=== PATIENT | female | born 1925 | race Caucasian/White ===

== ENCOUNTER 2016-11-30 16:41 | Inpatient (IN) | payer MEDICARE, BC ==
[2016-11-30] MEDS ORDERED: Cefepime(*) 2 GM in NS 0.9% 50 ML* 50 ML IVPB ONE (17:20)
[2016-11-30] MEDS ORDERED: Vancomycin(*) 1,000 MG in NS 0.9% 250 ML* 250 ML IVPB ONE (17:20)
[2016-11-30] MEDS ORDERED: metroNIDAZOLE IV 500 MG/100ML* 500 MG/100 ML BAG IVPB ONE (17:21)
[2016-11-30] MEDS ORDERED: NS 0.9% 50 ML* 0 ML ONE (18:08)
[2016-11-30] MEDS: NS 0.9% 1000 ML* 2,000 ML IV ONE (18:32)
[2016-11-30 18:52] LABS: Hematocrit 36 % (35-47); Hemoglobin 11.5 g/dl (12.0-16.0); Mean Corpuscular HGB Conc 32 g/dl (31-36); Mean Corpuscular Hemoglobin 30 pg (27-31); Mean Corpuscular Volume 94 fL (80-97); Mean Platelet Volume 10 um3 (7.4-10.4); Red Blood Count 3.86 10^6/ul (4.0-5.4); Red Cell Distribution Width 16 % (10.5-15); White Blood Count 14.7 10^3/ul (3.5-10.8)
--- NOTE | 2016-11-30 18:56 | ED ---
Alfredo Barrett Auryana, scribed for Duglas Alford MD on 11/30/16 at 1725 . Lower Extremity - HPI Summary HPI Summary: 89 year old female presents with possible bone infection in the middle toe on the right foot starting today. Patient reports that it was sore for a few days but did not think it was an infection. Family states that she doesn't have a good appetite and has pedal edema. She denies fever, night sweats, back pain, groin swelling, diarrhea, vomiting, calf pain, and any red streaks up to the legs. She denies any ABX for her toe or any trauma to the right foot. PMHx is significant for DM (borderline; medication non-compliant), valve replacement, and A-FIB- Warfarin treatment. She was seen at Dr. Duran's office - placed the dressing today and is concerned about a bone infection and sent patient to the ER for imaging. - History of Current Complaint Chief Complaint: EDExtremityLower Stated Complaint: RT TOE INJURY Time Seen by Provider: 11/30/16 17:00 Hx Obtained From: Patient Hx Last Menstrual Period: N/A Mechanism Of Injury: Unknown Onset of Pain: Prior to Arrival - TODAY - SEE AT DR. LINO OFFICE Onset/Duration: Still Present Severity Initially: Mild Severity Currently: Moderate Timing: Constant Location: Is Discrete @ - RIGHT FOOT - 3RD TOE Associated Signs And Symptoms: Positive: Swelling, Redness, Other - PEDAL EDEMA WITH POOR APPETITE. Negative: Fever - Allergies/Home Medications Allergies/Adverse Reactions: Allergies Allergy/AdvReac Type Severity Reaction Status Date / Time Bacitracin Allergy Unknown Rash Verified 11/30/16 17:44 Home Medications: Home Medications Aspirin EC Low Dose* [Ecotrin EC Low Dose 81 MG*] 81 mg PO DAILY 11/30/16 [ History Confirmed 11/30/16] Atorvastatin* [Lipitor*] 20 mg PO DAILY 11/30/16 [History Confirmed 11/30/16] Furosemide TAB* [Lasix TAB*] 40 mg PO DAILY 11/30/16 [History Confirmed 11/30/16 ] Hydrochlorothiazide TAB* [Hydrodiuril TAB*] 12.5 mg PO DAILY 11/30/16 [History Confirmed 11/30/16] Levothyroxine TAB* [Synthroid TAB*] 50 mcg PO DAILY 11/30/16 [History Confirmed 11/30/16] Lisinopril TAB* [Prinivil TAB*] 20 mg PO DAILY 11/30/16 [History Confirmed 11/30] Metoprolol Succinate XL TAB* [Toprol XL TAB*] 50 mg PO BID 11/30/16 [History Confirmed 11/30/16] Potassium Chloride LIQUID* [Klor-Con LIQUID*] 20 meq PO DAILY 11/30/16 [History Confirmed 11/30/16] Pramipexole TAB* [Mirapex TAB*] 0.25 mg PO BEDTIME 11/30/16 [History Confirmed 11/30/16] Warfarin TAB(*) [Coumadin TAB(*)] 1 mg PO SUTU 11/30/16 [History Confirmed 11/30] Warfarin TAB(*) [Coumadin TAB(*)] 2 mg PO MOWETHFRSA 11/30/16 [History Confirmed 11/30/16] traMADol TAB* [Ultram*] 25 - 50 mg PO TID PRN 11/30/16 [History Confirmed ] PMH/Surg Hx/FS Hx/Imm Hx Endocrine/Hematology History: Reports: Hx Diabetes - DM controlled with diet Cardiovascular History: Reports: Hx Coronary Artery Disease, Hx Hypercholesterolemia, Hx Valvular Heart Disease - Aortic valve dis, Mitral valve dis, Other Cardiovascular Problems/Disorders - A-Fib Musculoskeletal History: Denies: Hx Osteoporosis - Surgical History Surgery Procedure, Year, and Place: non-healing surgical wound; HEART BYPASS; VALVE REPLACEMENT; HYSTERECTOMY; TONSILLECTOMY Infectious Disease History: Denies: Traveled Outside the [place] in Last 30 Days - Social History Occupation: Retired Lives: With Family - Alcohol Use: None Hx Substance Use: No Substance Use Type: Reports: None Hx Tobacco Use: Yes Smoking Status (MU): Never Smoked Tobacco Review of Systems Constitutional: Negative Negative: Fever, Chills Eyes: Negative ENT: Negative Cardiovascular: Negative Respiratory: Negative Positive: Other - decreased appetite. Negative: Vomiting, Diarrhea Genitourinary: Negative Positive: Edema Positive: Other - erythema and pain at the 3rd toe on the right foot Neurological: Negative Psychological: Normal All Other Systems Reviewed And Are Negative: Yes Physical Exam - Summary Physical Exam Summary: The patient is well-nourished in no acute distress and in no acute pain. The skin is warm and dry and skin color reflects adequate perfusion. Ulcer on lateral aspect of the 3rd toe (R foot)- fairly deep, [id number]. Erythema over dorsum of the foot right with foul odor. Marked ecchymosis with questionable necrotic tissue. HEENT: The head is normocephalic and atraumatic. The pupils are equal and reactive. The conjunctivae are clear and without drainage. Nares are patent and without drainage. Mouth reveals moist mucous membranes and the throat is without erythema and exudate. The external ears are intact. The ear canals are patent and without drainage. The tympanic membranes are intact. Neck is supple with full range of motion and non-tender. There are no carotid bruits. There is no neck vein distension. Respiratory: Chest is non-tender. Lungs are clear to auscultation and breath sounds are symmetrical and equal. Cardiovascular: Heart is irregular rate and rhythm but controlled. There is no murmur or rub auscultated. There is no peripheral edema and pulses are symmetrical and equal. Abdomen: The abdomen is soft and non-tender. There are normal bowel sounds heard in all four quadrants and there is no organomegaly palpated. Musculoskeletal: There is no back pain noted. Right foot and injury is tender to touch. There is good capillary refill. There is no peripheral edema or calf tenderness elicited. Good pulses and sensation. No lymphangitis. Neurological: Patient is alert and oriented to person, place and time. The patient has symmetrical motor strength in all four extremities. Cranial nerves are grossly intact. Deep tendon reflexes are symmetrical and equal in all four extremities. Psychiatric: The patient has an appropriate affect and does not exhibit any anxiety or depression. Triage Information Reviewed: Yes Vital Signs On Initial Exam: Initial Vitals Temp Pulse Resp BP Pulse Ox 97.0 F 87 20 126/51 100 11/30/16 16:47 11/30/16 16:47 11/30/16 16:47 11/30/16 16:47 11/30/16 16:47 Vital Signs Reviewed: Yes Diagnostics - Vital Signs Vital Signs Temp Pulse Resp BP Pulse Ox 11/30/16 16:47 97.0 F 87 20 126/51 100 - Laboratory Lab Statement: Any lab studies that have been ordered have been reviewed, and results considered in the medical decision making process. Re-Evaluation - Re-Evaluation First Eval Re-Evaluation Time: 18:43 - DISCUSSED PLAN OF ACTION Lower Extremity Course/Dx - Course Assessment/Plan: 89 year old female presents with possible bone infection in the middle toe on the right foot starting today. Patient reports that it was sore for a few days but did not think it was an infection. Family states that she doesn't have a good appetite and has pedal edema. She denies fever, night sweats, back pain, groin swelling, diarrhea, vomiting, calf pain, and any red streaks up to the legs. She denies any ABX for her toe or any trauma to the right foot. She was seen at Dr. Brewster's office - placed the dressing today and is concerned about a bone infection and sent patient to the ER for imaging. Will start on ABX now. Will order imaging and MRSA cultures. Cultures- clusters resembling Staph. Will Consult hospitalist for admission. no critical care time for this patient. Sign out from Dr. Alford to Dr. Valente at 19: 00 11/30/16 PENDING ADMISSION - Diagnoses Differential Diagnosis/HQI/PQRI: Positive: Cellulitis, Osteomyelitis, Other - abscess, gangrene Provider Diagnoses: Infection of right foot, Ulcer of toe of right foot - Physician Notifications Discussed Care of Patient With: Romero Barth Time Discussed With Above Provider: 18:51 - agrees to admit Discharge - Discharge Plan Condition: Stable Disposition: ADMITTED TO [facility] Referrals: Khushbu Willis MD [Primary Care Provider] - The documentation as recorded by the Alfredo pathak Auryana accurately reflects the service I personally performed and the decisions made by , Duglas Alford MD.
[2016-11-30 19:08] LABS: Albumin 3.9 g/dL (3.2-5.2); BUN/Creatinine Ratio 41.3 (8-20); C Reactive Protein 124.86 mg/L (< 5.00); EGFR African American 44.4 (>60); EGFR Non-African American 34.6 (>60); Globulin 3.7 g/dL (2-4); Potassium 3.6 mmol/L (3.5-5.0); Total Bilirubin 0.7 mg/dL (0.2-1.0); Total Protein 7.6 g/dL (6.4-8.9); Troponin I 0.01 ng/mL (<0.04)
[2016-11-30] MEDS ORDERED: Dextrose 50% Syringe 50 ML* 25 GM/50 ML SYRINGE IV PUSH PRN (19:37)
[2016-11-30 19:57] LABS: Erythrocyte Sed Rate 102 mm/Hr (0-40)
[2016-11-30] MEDS ORDERED: Warfarin TAB(*) 2 MG PO SCH (20:00)
[2016-11-30] MEDS ORDERED: Heparin VIAL(*) 5000 UNITS/ML VIAL (FIVE THOUSAND) SUBCUT SCH (22:00)
--- NOTE | 2016-11-30 22:04 | HP ---
HOSPITAL MEDICINE HISTORY AND PHYSICAL: DATE OF ADMISSION: 11/30/16 PRIMARY CARE PHYSICIAN: Dr. Hernandez. ATTENDING PHYSICIAN: Kala Nicholson MD * (dictation provided by Dorcas Jack NP ) CHIEF COMPLAINT: Right third toe infection. HISTORY OF PRESENT ILLNESS: Ms. Roland is an 89-year-old female with a past medical history of coronary artery bypass graft with aortic and mitral valve repair complicated by sternal wound infection in 2011 as well as diabetes who presents today to the hospital with concern for right third toe infection. Ms. Roland states that she has been in her normal state of health. She has absolutely no health complaints. She was started on glyburide for an elevated hemoglobin A1c by her primary care physician, Dr. Hernandez. The patient states that she felt like she had lower extremity swelling after starting glyburide and therefore stopped it on her own without consulting a physician. She states that 2 days ago, she noticed that the top of her foot was itching. Her daughter saw her today and noted that the patient had significant redness and a wound to the right third toe and encouraged her to come to the emergency room for evaluation. The patient denies any fevers, any chills. No nausea. No vomiting. She has been tolerating oral intake well. She denies chest pain, shortness of breath. She has had no diarrhea. In the emergency room, Ms. Roland was confirmed to have what appeared to be a right third toe ulceration with erythema to the anterior portion of the right foot and she is afebrile. Her vitals are stable. Her labs showed leukocytosis with a white blood cell count of 14.7. She does have chronic kidney disease, but this is at baseline. Lactic acid is 2.1, CRP 124.86. PAST MEDICAL HISTORY: 1. Coronary artery bypass graft in 2011. 2. Aortic valve repair in 2011. 3. Mitral valve repair in 2011. 4. History of sternal wound infection with Staph aureus. 5. Restless leg syndrome. 6. Hypertension. 7. Hyperlipidemia. 8. Paroxysmal atrial fibrillation. 9. Diabetes, [id number]. 10. History of hysterectomy. MEDICATIONS: 1. Lisinopril 20 mg p.o. daily. 2. Tramadol 25 to 50 mg p.o. t.i.d. p.r.n. 3. Aspirin 81 mg p.o. daily. 4. Atorvastatin 20 mg p.o. daily. 5. Furosemide 40 mg p.o. daily. 6. Hydrochlorothiazide 12.5 mg p.o. daily. 7. Levothyroxine 50 mcg p.o. daily. 8. Metoprolol succinate 50 mg p.o. b.i.d. 9. Potassium chloride 20 mEq p.o. daily. 10. Pramipexole 0.25 mg p.o. at bedtime. 11. Warfarin 1 mg alternating with 2 mg tabs as directed. ALLERGIES: BACITRACIN. FAMILY HISTORY: The patient reports her mother at 88 of old age and father at 66 of heart problems, but he was a smoker. SOCIAL HISTORY: No report of tobacco or drug use. The patient drinks very rarely. She lives with her , who would be the healthcare proxy. REVIEW OF SYSTEMS: A 14-point review of systems was completed with Ms. Roland and all those not mentioned above were negative. PHYSICAL EXAMINATION GENERAL: Ms. Roland is sitting in the bed, eating a turkey sandwich. She is in no acute distress. VITAL SIGNS: Temperature 98.2, pulse rate 80, respiratory rate 16, O2 saturation 99% on room air, blood pressure 135/70. LUNGS: Clear to auscultation bilaterally with no accessory muscle use and good aeration. HEART: S1, S2. No murmur, rub, or gallop and regular. ABDOMEN: Soft, nontender with bowel sounds positive x4. EXTREMITIES: No cyanosis or edema. SKIN: The patient has noted erythema to the top of her right foot extending about half way down along the right side. She has a small ulceration to the third digit on the anterior portion. There is no drainage, but the entire third toe was swollen. NEURO: She is alert and oriented x3. She moves all extremities equally. There is no facial asymmetry or focal weakness. Extraocular movements are intact. LABORATORY DATA/DIAGNOSTIC STUDIES: Sodium 136, potassium 3.6, chloride 93, serum bicarbonate 32, BUN 59, creatinine 1.43, glucose 130, lactic acid 2.1, CRP 124.86. WBC 14.7, hemoglobin 11.5, hematocrit 36, platelet count 250. INR 2.84. ASSESSMENT: Ms. Roland is an 89-year-old female with a past medical history of coronary artery bypass graft and aortic and mitral valve repair complicated with sternal wound infection in 2012 as well as atrial fibrillation, newly diagnosed type 2 diabetes, and hypertension who presents today to the hospital with concern for infection to the right third toe. Our plan is as follows for inpatient admission as I expect her length of stay to be greater than 2 days for the followin. Diabetic foot ulcer: I suspect this is a diabetic foot ulcer and the patient apparently has a neuropathy as she did not feel any pain with the significant swelling, erythema, and ulceration to the third toe. She is also newly diagnosed with diabetes though her hemoglobin A1c is not particularly high. She had started glyburide, but stopped it independently due to the concern that perhaps it was causing lower extremity edema. Plan to treat with clindamycin and Levaquin for now with dosing based on her chronic kidney disease. Plan to encourage her to elevate the lower extremity at all times. Anticipate the patient may need to follow up with the wound care clinic. At this time, I do not see an indication for orthopedic consultation, but I think if the infection does not improve significantly with antibiotics, we will need to involve Ortho and ID. 2. Coronary artery bypass graft history with aortic and mitral valve repair. The patient states she is asymptomatic. There is no evidence of chest pain, plan to continue home medications and metoprolol. We will hold lisinopril while she is acutely ill. 3. Atrial fibrillation. The patient is in atrial fibrillation in the emergency room. Plan to continue warfarin, but we will lower the dose given that she will be on Levaquin. 4. Hyperlipidemia. Continue statin. 5. DVT prophylaxis with heparin subcu. 6. Disposition to medical floor. TIME SPENT: Approximately 60 minutes were spent on the admission of this patient, more than half of the time was spent with the patient at the bedside reviewing the events leading up to this hospitalization, performing the physical examination, and reviewing the plan of care. DORCAS JACK NP CC: Dr. Hernandez * [id number]/[facility] #: [id number] SEBASTIAN
[2016-11-30] MEDS: Metoprolol Succinate XL TAB* 50 MG PO SCH (22:16)
[2016-11-30] MEDS: Pramipexole TAB* 0.125 MG PO SCH (22:16)
[2016-11-30] MEDS: Clindamycin 600 MG IVPREMIX(* 600 MG/50 ML SDV IV SCH (22:19)
[2016-11-30] MEDS: Levofloxacin 500 MG IVPREMIX(* 500 MG/100 ML BAG IVPB SCH (23:08)
[2016-12-01] MEDS: traMADol TAB* 50 MG PO PRN ×2 (00:23→21:27)
[2016-12-01] MEDS: Clindamycin 600 MG IVPREMIX(* 600 MG/50 ML SDV IV SCH ×3 (05:00→21:28)
[2016-12-01] MEDS: Levothyroxine TAB* 50 MCG TAB PO SCH (05:10)
[2016-12-01 08:13] LABS: Hematocrit 34 % (35-47); Hemoglobin 10.9 g/dl (12.0-16.0); Mean Corpuscular HGB Conc 32 g/dl (31-36); Mean Corpuscular Hemoglobin 31 pg (27-31); Mean Corpuscular Volume 94 fL (80-97); Mean Platelet Volume 10 um3 (7.4-10.4); Red Blood Count 3.56 10^6/ul (4.0-5.4); Red Cell Distribution Width 15 % (10.5-15); White Blood Count 13.2 10^3/ul (3.5-10.8)
[2016-12-01 08:18] LABS: BUN/Creatinine Ratio 38.3 (8-20); Calcium 9.2 mg/dL (8.6-10.3); EGFR African American 57.1 (>60); EGFR Non-African American 44.4 (>60); Potassium 3.6 mmol/L (3.5-5.0)
--- NOTE | 2016-12-01 08:31 | PN ---
Subjective Date of Service: 12/01/16 Interval History: Pt is feeling well. She denies any significant pain but does state that her R 3rd toe is sore. She denies any chest pain or SOB. She does not know how long there may have been an ulceration on the toe. She states that she had her toenails clipped at the salon about 1 month ago and does not recall seeing anything abnormal at that time. Objective Active Medications: Aspirin (Aspirin Ec Low Dose*) 81 mg PO DAILY [facility] Atorvastatin Calcium (Lipitor*) 20 mg PO DAILY [facility] Dextrose (D50w Syringe 50 Ml*) 12.5 gm IV PUSH .FOR FS < 60 - SS PRN PRN Reason: FS < 60 Levofloxacin/Dextrose (Levaquin 500 Mg Ivpremix(*)) 500 mg in 100 mls @ 100 mls /hr IVPB Q24H [facility] Last Admin: 11/30/16 23:08 Dose: 100 mls/hr Clindamycin HCl/Dextrose (Cleocin 600 Mg Ivpremix(*) Sdv) 600 mg in 50 mls @ 100 mls/hr IV Q8H [facility] Last Admin: 12/01/16 05:00 Dose: 100 mls/hr Insulin Human Lispro (Humalog*) 0 units SUBCUT AC [facility] PRN Reason: Protocol Levothyroxine Sodium (Synthroid Tab*) 50 mcg PO 0600 [facility] Last Admin: 12/01/16 05:10 Dose: 50 mcg Metoprolol Succinate (Toprol Xl Tab*) 50 mg PO BID [facility] Last Admin: 11/30/16 22:16 Dose: 50 mg Pneumococcal Polyvalent Vaccine (Pneumococcal Vac Polyvalent*) 0.5 ml IM .ONCE ONE Stop: 12/01/16 09:01 Potassium Chloride (Klor-Con Liquid*) 20 meq PO DAILY [facility] Pramipexole Dihydrochloride (Mirapex Tab*) 0.25 mg PO BEDTIME [facility] Last Admin: 11/30/16 22:16 Dose: 0.25 mg Tramadol HCl (Ultram*) 25 mg PO Q6H PRN PRN Reason: PAIN Last Admin: 12/01/16 00:23 Dose: 25 mg Vital Signs 11/30/16 11/30/16 11/30/16 20:19 20:20 20:35 Temperature 98.3 F Pulse Rate 81 78 Respiratory 16 Rate Blood Pressure 147/56 126/52 (mmHg) O2 Sat by Pulse 97 95 Oximetry 11/30/16 11/30/16 12/01/16 21:08 23:19 00:23 Temperature 97.9 F 99.0 F Pulse Rate 84 74 Respiratory 17 16 17 Rate Blood Pressure 144/88 129/51 (mmHg) O2 Sat by Pulse 98 98 Oximetry 12/01/16 12/01/16 12/01/16 02:23 03:44 07:18 Temperature 98.5 F 98.2 F Pulse Rate 74 80 Respiratory 16 14 16 Rate Blood Pressure 161/60 150/59 (mmHg) O2 Sat by Pulse 99 98 Oximetry 12/01/16 07:42 Temperature Pulse Rate Respiratory Rate Blood Pressure (mmHg) O2 Sat by Pulse 98 Oximetry Oxygen Devices in Use Now: None Appearance: Elderly female lying in bed, NAD Eyes: No Scleral Icterus Ears/Nose/Mouth/Throat: Mucous Membranes Moist Respiratory: Symmetrical Chest Expansion and Respiratory Effort, Clear to Auscultation Cardiovascular: NL Sounds; No Murmurs; No JVD, No Edema, - - irregularly irregular Abdominal: NL Sounds; No Tenderness; No Distention Extremities: No Clubbing, Cyanosis Skin: - - R 3rd toe is markedly swollen and discolored. There is an area of necrotic tissue between the 3rd toe and 4th toe with pin head sized hole- copious amount of thick/chunky purulent material able to be expressed, mildly tender with expressing the pus Neurological: Alert and Oriented x 3 Result Diagrams: 12/01/16 07:43 12/01/16 07:43 Microbiology and Other Data: Assess/Plan/Problems-Billing Ms Roland is an 89 yo F who has a h/o diabetes, CAD, HTN, HLD and paroxysmal afib who presented to the ER from her PCPs office for concerns of a diabetic R 3rd toe infection. - Patient Problems (1) Type 2 diabetes mellitus with right diabetic foot infection Current Visit: Yes Status: Acute Code(s): E11.628 - TYPE 2 DIABETES MELLITUS WITH OTHER SKIN COMPLICATIONS; L08.9 - LOCAL INFECTION OF THE SKIN AND SUBCUTANEOUS TISSUE, UNSP SNOMED Code(s): 72609920 Comment: The patient has a R third toe severe infection. ? osteomyelitis. Will get Xray now. Orthopedic consult for possible amputation. Will continue levaquin and clindamycin for now. Will reach out to Dr. Schuster for other Abx recommendations. Her WBC count is trending down but still elevated today. Monitor for signs of worsening infection. No evidence of sepsis at this time. (2) Anemia Current Visit: Yes Status: Acute Code(s): D64.9 - ANEMIA, UNSPECIFIED SNOMED Code(s): 086868536 Comment: The patient has not been anemic in the past. ? anemia of chronic inflammation related to her severe toe infection. Continue to monitor. Check iron and B12 studies. (3) Type II diabetes mellitus Current Visit: Yes Status: Acute Comment: Last A1c was reportedly elevated at 7.3%. Continue lispro sliding scale for now. (4) Afib Current Visit: Yes Status: Acute Code(s): I48.91 - UNSPECIFIED ATRIAL FIBRILLATION SNOMED Code(s): 61286417 Comment: Pt sounds to be in controlled afib. Continue metoprolol XL and hold coumadin as INR is supratherapeutic today and she will likely need surgery for her toe. (5) CAD (coronary artery disease) Current Visit: Yes Status: Acute Code(s): I25.10 - ATHSCL HEART DISEASE OF [place] CORONARY ARTERY W/O ANG PCTRS SNOMED Code(s): 30911190 Comment: No c/o chest pain. Continue ASA, lipitor and metoprolol. (6) HTN (hypertension) Current Visit: Yes Status: Acute Code(s): I10 - ESSENTIAL (PRIMARY) HYPERTENSION SNOMED Code(s): 30139892 Comment: BP is moderately elevated this AM. Will monitor on metoprolol alone- hold diuretics for now until a decision is made about surgery. (7) CKD (chronic kidney disease) stage 3, GFR 30-59 ml/min Current Visit: Yes Status: Acute Code(s): N18.3 - CHRONIC KIDNEY DISEASE, STAGE 3 (MODERATE) SNOMED Code(s): 261240997 Comment: Creatinine is at baseline. Continue to monitor. (8) Hypothyroidism Current Visit: Yes Status: Acute Code(s): E03.9 - HYPOTHYROIDISM, UNSPECIFIED SNOMED Code(s): 41686435 Comment: Continue current dose of synthroid. (9) DVT prophylaxis Current Visit: Yes Status: Acute Code(s): PNT1400 - SNOMED Code(s): 339295073 Comment: supratherapeutic INR (10) Full code status Current Visit: Yes Status: Acute Code(s): Z78.9 - OTHER SPECIFIED HEALTH STATUS SNOMED Code(s): 119027721
[2016-12-01] MEDS: Atorvastatin* 20 MG TAB PO SCH (08:40)
[2016-12-01] MEDS: Potassium Chloride LIQUID* 20 MEQ PACKET PO SCH (08:40)
[2016-12-01] MEDS: Aspirin EC Low Dose* 81 MG TAB.EC PO SCH (08:41)
[2016-12-01] MEDS: Insulin LISPRO* 1 UNITS UNIT SUBCUT SCH ×3 (08:42→16:31)
[2016-12-01] MEDS: Metoprolol Succinate XL TAB* 50 MG PO SCH ×2 (08:42→21:21)
[2016-12-01] MEDS ORDERED: Pneumococcal Vac Polyvalent* 0.5 ML VIAL IM ONE (09:00)
[2016-12-01] MEDS ORDERED: Furosemide TAB* 40 MG PO SCH (09:00)
[2016-12-01] MEDS ORDERED: Hydrochlorothiazide TAB* 25 MG PO SCH (09:00)
[2016-12-01 09:25] LABS: Ferritin 273.7 ng/mL (11-307)
--- NOTE | 2016-12-01 14:20 | RAD ---
INDICATION: Wound between the third and fourth right toes TECHNIQUE: 3 views of the right third and fourth toes and forefoot were obtained. FINDINGS: The visualized bones exhibit diffuse bony demineralization. Degenerative changes include narrowing of the interphalangeal, metatarsal phalangeal and visualized intertarsal joints. The bony cortices appear to be intact. IMPRESSION: Degenerative changes of the visualized portions of the right foot without cortical destruction characteristic of osteomyelitis.
[2016-12-01] MEDS ORDERED: Warfarin TAB(*) 1 MG PO SCH (17:00)
[2016-12-01] MEDS: Pramipexole TAB* 0.125 MG PO SCH (21:21)
--- NOTE | 2016-12-01 23:19 | CONS ---
ORTHOPEDIC CONSULT: DATE OF CONSULT: 12/01/16 ATTENDING PHYSICIAN: Abel Johnson MD CHIEF COMPLAINT: Left third toe. HISTORY OF PRESENT ILLNESS: Ms. Roland is an 89-year-old female. She reports she thought she had irritated her right foot on her shoes and had not thought much of it. She does have a remote history of having her nails cut several days ago. Her daughter had looked at the toe when Ms. Roland had said that it was sore and she had sent her right off to her primary care who had then sent her to the emergency room. She had very specific swelling, redness, erythema, and quite a bit of pain with palpation of the toe. She was admitted last night and started on antibiotics. She has not been septic and has not had any systemic symptoms such as fevers, chills, or sweats. Other than her third toe, she reports no other troubles with the foot. PREVIOUS MEDICAL HISTORY: 1. Coronary artery disease with valvular involvement. 2. Hypertension. 3. AFib. 4. Diabetes. PREVIOUS SURGICAL HISTORY: 1. CABG with aortic and mitral valve repairs. 2. Hysterectomy. FAMILY HISTORY: Noncontributory. SOCIAL HISTORY: She is and resides in [place]. She has a negative tobacco and a negative ETOH history. REVIEW OF SYSTEMS: She reports other than the foot, she is doing fairly well. PHYSICAL EXAM: Right foot: Inspection of the foot finds a crustiness over both the third and fourth toes. I was able to manipulate toes and it appears that the fourth toe is really not involved. Rather, it appears that there is area of dried granulation on the distal lateral portion of the third toe. With just scraping the fourth toe, I was able to remove most of the granulation tissue there and the fourth toe really did look fairly good and she had no pain with manipulation of the fourth toe. With the third toe, however, she was diffusely tender. I was able to use initially a gauze to just scrape some of the dried eschar/granulation tissue from that lateral side and this opened the area. Using a Q-tip, I was then able to brush that area to further debride it and with squeezing was able to get some purulent material out. It had a gouty look to it with that gritty sort of white material. She was sore as I did so debride and scrape. Afterwards, I was able to pack 1/4- inch Iodoform into the wound and showed the nurses how to do this as well. ASSESSMENT: Right third toe infection. PLAN: Her x-rays really look quite good where there is no involvement of the bone at this time. I discussed with them that if we can get ahead of the infection, as it appears to be much more just on the top side of the toe and I am not convinced that it runs deeper all the way through at this point, that hopefully we do not have to remove the toe. We will start her on a dilute Betadine soak 3 times a day in addition to the Iodoform packing. She is currently on clinda and levofloxacin and antibiotics will probably be modified as we continue along. I will check on her tomorrow in the afternoon to see how 24 hours of local wound care has affected this and how the toe is doing. Her INR currently is also of such a point that we would not be able to do anything definitive even if she did require an amputation. I am, however, not convinced that it is needed at this point, but will follow along and see how this progresses. [id number]/[facility] #: [id number] MTDD
[2016-12-01] MEDS: Levofloxacin 500 MG IVPREMIX(* 500 MG/100 ML BAG IVPB SCH (23:24)
[2016-12-02] MEDS: Levothyroxine TAB* 50 MCG TAB PO SCH (05:37)
[2016-12-02] MEDS: Clindamycin 600 MG IVPREMIX(* 600 MG/50 ML SDV IV SCH ×3 (05:38→21:59)
--- NOTE | 2016-12-02 08:03 | PN ---
Subjective Date of Service: 12/02/16 Interval History: Pt is feeling well. She has minimal pain in her R 3rd toe. She states she has continued to have drainage from the toe. She denies any diarrhea. No chest pain or shortness of breath. Objective Active Medications: Aspirin (Aspirin Ec Low Dose*) 81 mg PO DAILY [facility] Last Admin: 12/01/16 08:41 Dose: 81 mg Atorvastatin Calcium (Lipitor*) 20 mg PO DAILY [facility] Last Admin: 12/01/16 08:40 Dose: 20 mg Dextrose (D50w Syringe 50 Ml*) 12.5 gm IV PUSH .FOR FS < 60 - SS PRN PRN Reason: FS < 60 Levofloxacin/Dextrose (Levaquin 500 Mg Ivpremix(*)) 500 mg in 100 mls @ 100 mls /hr IVPB Q24H [facility] Last Admin: 12/01/16 23:24 Dose: 100 mls/hr Clindamycin HCl/Dextrose (Cleocin 600 Mg Ivpremix(*) Sdv) 600 mg in 50 mls @ 100 mls/hr IV Q8H [facility] Last Admin: 12/02/16 05:38 Dose: 100 mls/hr Insulin Human Lispro (Humalog*) 0 units SUBCUT AC [facility] PRN Reason: Protocol Last Admin: 12/01/16 16:31 Dose: Not Given Levothyroxine Sodium (Synthroid Tab*) 50 mcg PO 0600 [facility] Last Admin: 12/02/16 05:37 Dose: 50 mcg Lisinopril (Prinivil Tab*) 20 mg PO DAILY [facility] Metoprolol Succinate (Toprol Xl Tab*) 50 mg PO BID [facility] Last Admin: 12/01/16 21:21 Dose: 50 mg Potassium Chloride (Klor-Con Liquid*) 20 meq PO DAILY [facility] Last Admin: 12/01/16 08:40 Dose: 20 meq Pramipexole Dihydrochloride (Mirapex Tab*) 0.25 mg PO BEDTIME [facility] Last Admin: 12/01/16 21:21 Dose: 0.25 mg Tramadol HCl (Ultram*) 25 mg PO Q6H PRN PRN Reason: PAIN Last Admin: 12/01/16 21:27 Dose: 25 mg Vital Signs 12/01/16 12/01/16 12/01/16 08:00 12:49 15:14 Temperature 98.5 F 97.9 F Pulse Rate 78 77 Respiratory 16 20 Rate Blood Pressure 146/54 146/54 (mmHg) O2 Sat by Pulse 99 98 Oximetry 12/01/16 12/01/16 12/01/16 19:37 19:42 21:25 Temperature 98.2 F 98.1 F Pulse Rate 92 92 Respiratory 28 18 Rate Blood Pressure 148/52 166/62 (mmHg) O2 Sat by Pulse 100 100 98 Oximetry 12/01/16 12/01/16 12/02/16 21:27 23:27 03:23 Temperature 98.0 F Pulse Rate 80 Respiratory 20 20 16 Rate Blood Pressure 142/58 (mmHg) O2 Sat by Pulse 84 Oximetry 12/02/16 12/02/16 03:47 07:21 Temperature 98.5 F Pulse Rate 92 Respiratory Rate Blood Pressure 146/53 (mmHg) O2 Sat by Pulse 97 97 Oximetry Oxygen Devices in Use Now: None Appearance: Elderly female sitting up in bed, NAD Eyes: No Scleral Icterus Ears/Nose/Mouth/Throat: Mucous Membranes Moist Respiratory: Symmetrical Chest Expansion and Respiratory Effort, Clear to Auscultation Cardiovascular: NL Sounds; No Murmurs; No JVD, RRR, No Edema Abdominal: NL Sounds; No Tenderness; No Distention Extremities: No Clubbing, Cyanosis Skin: No Nodules or Sclerosis, - - R 3rd toe is still swollen and erythematous- there is grainy and purulent drainage on the surface of the toe. The toe remains quite erythematous Neurological: Alert and Oriented x 3 Result Diagrams: 12/01/16 07:43 12/01/16 07:43 Microbiology and Other Data: Assess/Plan/Problems-Billing Ms Roland is an 89 yo F who has a h/o diabetes, CAD, HTN, HLD and paroxysmal afib who presented to the ER from her PCPs office for concerns of a diabetic R 3rd toe infection. - Patient Problems (1) Type 2 diabetes mellitus with right diabetic foot infection Current Visit: Yes Status: Acute Code(s): E11.628 - TYPE 2 DIABETES MELLITUS WITH OTHER SKIN COMPLICATIONS; L08.9 - LOCAL INFECTION OF THE SKIN AND SUBCUTANEOUS TISSUE, UNSP SNOMED Code(s): 74174620 Comment: The patient has a R third toe severe infection. Appreciate Dr. Johnson's input. ? infected tophus given grainy material that is able to be expressed from the wound. Continue levaquin and clindamycin for now. Will ask for ID consult tomorrow. Repeat WBC count tomorrow. For local care fo the wound will continue TID betadine soaks and packing per Dr. Johnson's recommendations. (2) Anemia Current Visit: Yes Status: Acute Code(s): D64.9 - ANEMIA, UNSPECIFIED SNOMED Code(s): 582428518 Comment: No evidence of iron or B12 deficiency. Continue to follow H/H closely. (3) Type II diabetes mellitus Current Visit: Yes Status: Acute Comment: Last A1c was reportedly elevated at 7.3%. Continue lispro sliding scale for now. (4) Afib Current Visit: Yes Status: Acute Code(s): I48.91 - UNSPECIFIED ATRIAL FIBRILLATION SNOMED Code(s): 48855373 Comment: HR is controlled. Continue metoprolol XL. INR remains supratherapeutic today despite holding coumadin last night. Will continue to follow the INR but not reverse at this time. (5) CAD (coronary artery disease) Current Visit: Yes Status: Acute Code(s): I25.10 - ATHSCL HEART DISEASE OF [place] CORONARY ARTERY W/O ANG PCTRS SNOMED Code(s): 20839069 Comment: No c/o chest pain. Continue ASA, lipitor and metoprolol. (6) HTN (hypertension) Current Visit: Yes Status: Acute Code(s): I10 - ESSENTIAL (PRIMARY) HYPERTENSION SNOMED Code(s): 78902287 Comment: BP remains elevated. Will add back lisinopril which was held on admission. If BP does not improve will add back HCTZ. (7) CKD (chronic kidney disease) stage 3, GFR 30-59 ml/min Current Visit: Yes Status: Acute Code(s): N18.3 - CHRONIC KIDNEY DISEASE, STAGE 3 (MODERATE) SNOMED Code(s): 399798141 Comment: Creatinine is at baseline. Continue to monitor. (8) Hypothyroidism Current Visit: Yes Status: Acute Code(s): E03.9 - HYPOTHYROIDISM, UNSPECIFIED SNOMED Code(s): 08612156 Comment: Continue current dose of synthroid. (9) DVT prophylaxis Current Visit: Yes Status: Acute Code(s): RIT9940 - SNOMED Code(s): 923786175 Comment: supratherapeutic INR (10) Full code status Current Visit: Yes Status: Acute Code(s): Z78.9 - OTHER SPECIFIED HEALTH STATUS SNOMED Code(s): 844278211
[2016-12-02] MEDS: Atorvastatin* 20 MG TAB PO SCH (10:10)
[2016-12-02] MEDS: Metoprolol Succinate XL TAB* 50 MG PO SCH ×2 (10:10→21:48)
[2016-12-02] MEDS: Potassium Chloride LIQUID* 20 MEQ PACKET PO SCH (10:11)
[2016-12-02] MEDS: Insulin LISPRO* 1 UNITS UNIT SUBCUT SCH ×3 (10:11→16:36)
[2016-12-02] MEDS: Lisinopril TAB* 10 MG PO SCH (10:11)
[2016-12-02] MEDS: Aspirin EC Low Dose* 81 MG TAB.EC PO SCH (10:11)
[2016-12-02] MEDS ORDERED: Warfarin TAB(*) 1 MG PO SCH (19:38)
--- NOTE | 2016-12-02 20:22 | CONS ---
ORTHOPEDIC NOTE: DATE OF CONSULT: 12/02/16 REASON FOR CONSULT: Ms. Roland is an 89-year-old female who has an infected right third toe. Yesterday, I had debrided her at the bedside to a depth of 10 mm and started her with soaks and iodoform packing. I caught her today just before the soak and she reports that she thinks she is doing alright. The foot is sore, especially as I pulled the iodoform packing out and squeezed to get out any of the goopy material that is still in there, but she thinks she is doing alright. PHYSICAL EXAM: Right foot: The fourth toe now looks nice and clean and it could be seen that it was not involved. On the third toe, her wound is much clearly visible where there is a lateral wound measuring approximately 8 mm in diameter with an open central area. There is still some of that whitish gritty material lining the area and with squeezing I could express more of that. With brushing a 4x4 again, I was able to gently debride the area and get more of that material out. There was a little bit of bleeding centrally, but considering her INR of 5.43, she was not bleeding from the wound. The remainder of the toe once we get away from the toe distally, is nice and pink, and proximally it could be seen where her erythema is improving, where it is not as angry or red as it previously was. Her nurse had some questions about that whitish material and we talked a bit about it and I encouraged her to continue using the Q-tips to brush out any of that whitish material to help debride the toe. 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 PLAN/RECOMMENDATIONS: I saw from the hospitalist plan that ID will be consulted tomorrow, so I look forward to their recommendations for antibiotics. We will continue with the local wound care and we will see how the wound looks tomorrow and see where we can progress from there. [id number]/[facility] #: [id number] MTDD
[2016-12-02] MEDS: Pramipexole TAB* 0.125 MG PO SCH (21:45)
[2016-12-02] MEDS: traMADol TAB* 50 MG PO PRN (21:47)
[2016-12-03] MEDS: Clindamycin 600 MG IVPREMIX(* 600 MG/50 ML SDV IV SCH ×3 (04:54→21:52)
[2016-12-03] MEDS: Levothyroxine TAB* 50 MCG TAB PO SCH (06:26)
[2016-12-03 07:01] LABS: Hematocrit 30 % (35-47); Hemoglobin 9.7 g/dl (12.0-16.0); Mean Corpuscular HGB Conc 33 g/dl (31-36); Mean Corpuscular Hemoglobin 31 pg (27-31); Mean Corpuscular Volume 95 fL (80-97); Mean Platelet Volume 10 um3 (7.4-10.4); Red Blood Count 3.13 10^6/ul (4.0-5.4); Red Cell Distribution Width 16 % (10.5-15); White Blood Count 11.1 10^3/ul (3.5-10.8)
[2016-12-03 07:28] LABS: BUN/Creatinine Ratio 32.7 (8-20); Calcium 9.2 mg/dL (8.6-10.3); EGFR African American 62.1 (>60); EGFR Non-African American 48.3 (>60)
--- NOTE | 2016-12-03 08:15 | PN ---
Subjective Date of Service: 12/03/16 Interval History: Pt is feeling well. She has no pain in the foot. She states she awoke last night incontinent of liquid stool. She has not had any further BMs. No abdominal pain. No SOB. Objective Active Medications: Aspirin (Aspirin Ec Low Dose*) 81 mg PO DAILY [facility] Last Admin: 12/02/16 10:11 Dose: 81 mg Atorvastatin Calcium (Lipitor*) 20 mg PO DAILY [facility] Last Admin: 12/02/16 10:10 Dose: 20 mg Dextrose (D50w Syringe 50 Ml*) 12.5 gm IV PUSH .FOR FS < 60 - SS PRN PRN Reason: FS < 60 Clindamycin HCl/Dextrose (Cleocin 600 Mg Ivpremix(*) Sdv) 600 mg in 50 mls @ 100 mls/hr IV Q8H [facility] Last Admin: 12/03/16 04:54 Dose: 100 mls/hr Insulin Human Lispro (Humalog*) 0 units SUBCUT AC [facility] PRN Reason: Protocol Last Admin: 12/02/16 16:36 Dose: Not Given Levothyroxine Sodium (Synthroid Tab*) 50 mcg PO 0600 [facility] Last Admin: 12/03/16 06:26 Dose: 50 mcg Lisinopril (Prinivil Tab*) 20 mg PO DAILY [facility] Last Admin: 12/02/16 10:11 Dose: 20 mg Metoprolol Succinate (Toprol Xl Tab*) 50 mg PO BID [facility] Last Admin: 12/02/16 21:48 Dose: 50 mg Potassium Chloride (Klor-Con Liquid*) 20 meq PO DAILY [facility] Last Admin: 12/02/16 10:11 Dose: 20 meq Pramipexole Dihydrochloride (Mirapex Tab*) 0.25 mg PO BEDTIME [facility] Last Admin: 12/02/16 21:45 Dose: 0.25 mg Tramadol HCl (Ultram*) 25 mg PO Q6H PRN PRN Reason: PAIN Last Admin: 12/02/16 21:47 Dose: 25 mg Vital Signs 12/02/16 12/02/16 12/02/16 15:14 19:59 20:00 Temperature 97.5 F 98.2 F Pulse Rate 84 81 Respiratory 16 16 18 Rate Blood Pressure 129/57 137/44 (mmHg) O2 Sat by Pulse 99 100 Oximetry 05/02/1112/02/16 12/02/16 21:46 21:47 21:50 Temperature 97.8 F Pulse Rate 105 78 Respiratory 18 18 Rate Blood Pressure 154/62 (mmHg) O2 Sat by Pulse 98 Oximetry 12/02/16 12/03/16 12/03/16 23:47 03:55 07:14 Temperature 98.1 F 98.0 F Pulse Rate 80 76 Respiratory 16 16 16 Rate Blood Pressure 155/62 132/69 (mmHg) O2 Sat by Pulse 100 99 Oximetry Oxygen Devices in Use Now: None Appearance: Elderly female lying in bed, NAD Eyes: No Scleral Icterus Ears/Nose/Mouth/Throat: Mucous Membranes Moist Respiratory: Symmetrical Chest Expansion and Respiratory Effort, Clear to Auscultation Cardiovascular: RRR, No Edema, - - III/ systolic murmur Abdominal: NL Sounds; No Tenderness; No Distention Extremities: No Clubbing, Cyanosis Skin: No Nodules or Sclerosis, - - Less edema of the R 3rd toe, no significant drainage noted on the dressing this AM. The tissue overlying the DIP is very boggy. Continued erythema of the toe and dorsum of the R foot- the area on the foot appears somewhat petechial today. Neurological: Alert and Oriented x 3 Result Diagrams: 12/03/16 06:27 12/03/16 06:27 Microbiology and Other Data: Assess/Plan/Problems-Billing Ms Roland is an 89 yo F who has a h/o diabetes, CAD, HTN, HLD and paroxysmal afib who presented to the ER from her PCPs office for concerns of a diabetic R 3rd toe infection. - Patient Problems (1) Type 2 diabetes mellitus with right diabetic foot infection Current Visit: Yes Status: Acute Code(s): E11.628 - TYPE 2 DIABETES MELLITUS WITH OTHER SKIN COMPLICATIONS; L08.9 - LOCAL INFECTION OF THE SKIN AND SUBCUTANEOUS TISSUE, UNSP SNOMED Code(s): 21352861 Comment: The patient has a R third toe severe infection. Appreciate Dr. Johnson's input. ? infected tophus. Overall it appears the toe is improving. Will continue clindamycin alone as both cultures have grown MSSA (initial culture had no drainage, second culture was cultured from expressed drainage). Continue packing and betadine soaks. WBC count continues to improve. ID consult today. (2) Anemia Current Visit: Yes Status: Acute Code(s): D64.9 - ANEMIA, UNSPECIFIED SNOMED Code(s): 142926572 Comment: H/H has continued to trend down. No signs of bleeding. No iron or B12 deficiency. ? Anemia of chronic inflammation. (3) Type II diabetes mellitus Current Visit: Yes Status: Acute Comment: Sugars have in general been under fair control. At her advanced age I do not think we should aim for perfect blood sugar control as she runs the risk of going low. Continue lispro sliding scale for now. (4) Afib Current Visit: Yes Status: Acute Code(s): I48.91 - UNSPECIFIED ATRIAL FIBRILLATION SNOMED Code(s): 96775007 Comment: HR is controlled. Continue metoprolol XL. INR remains supratherapeutic. Continue to hold coumadin and follow up INR in the AM. (5) CAD (coronary artery disease) Current Visit: Yes Status: Acute Code(s): I25.10 - ATHSCL HEART DISEASE OF [place] CORONARY ARTERY W/O ANG PCTRS SNOMED Code(s): 07356032 Comment: No c/o chest pain. Continue ASA, lipitor and metoprolol. (6) HTN (hypertension) Current Visit: Yes Status: Acute Code(s): I10 - ESSENTIAL (PRIMARY) HYPERTENSION SNOMED Code(s): 67320397 Comment: Add back HCTZ today to try to get optimal BP control. (7) CKD (chronic kidney disease) stage 3, GFR 30-59 ml/min Current Visit: Yes Status: Acute Code(s): N18.3 - CHRONIC KIDNEY DISEASE, STAGE 3 (MODERATE) SNOMED Code(s): 119431940 Comment: Creatinine is at baseline. Continue to monitor. (8) Hypothyroidism Current Visit: Yes Status: Acute Code(s): E03.9 - HYPOTHYROIDISM, UNSPECIFIED SNOMED Code(s): 97664777 Comment: Continue current dose of synthroid. (9) DVT prophylaxis Current Visit: Yes Status: Acute Code(s): XAW0279 - SNOMED Code(s): 247981014 Comment: supratherapeutic INR (10) Full code status Current Visit: Yes Status: Acute Code(s): Z78.9 - OTHER SPECIFIED HEALTH STATUS SNOMED Code(s): 856419436
[2016-12-03 08:26] LABS: C Reactive Protein 58.35 mg/L (< 5.00)
[2016-12-03] MEDS: Aspirin EC Low Dose* 81 MG TAB.EC PO SCH (08:42)
[2016-12-03] MEDS: Potassium Chloride LIQUID* 20 MEQ PACKET PO SCH (08:42)
[2016-12-03] MEDS: Atorvastatin* 20 MG TAB PO SCH (08:42)
[2016-12-03] MEDS: Insulin LISPRO* 1 UNITS UNIT SUBCUT SCH ×3 (08:43→17:35)
[2016-12-03] MEDS: Metoprolol Succinate XL TAB* 50 MG PO SCH ×2 (08:43→22:38)
[2016-12-03] MEDS: Lisinopril TAB* 10 MG PO SCH (08:43)
[2016-12-03] MEDS: Hydrochlorothiazide TAB* 25 MG PO SCH (08:43)
--- NOTE | 2016-12-03 21:51 | CONS ---
ORTHOPEDIC NOTE: DATE OF CONSULT: 12/03/16 REASON FOR CONSULT: Mrs. Roland is an 89-year-old female who had come in Saturday night with an infected right third toe. She had undergone a debridement on Saturday, where I had unroofed the dried granulation tissue and using gauze as well as the small cotton swabs, I was able to debride to a depth of approximately 1 cm, where I came essentially all the way across the swollen toe. She has been doing soaks and receiving iodoform packing and she reports that the toe feels fairly good. Her white blood cell count has been tending downwards, where she is now 11.1 and she reports that unless she stubs the toe, it does not hurt. Consult from Dr. Schuster has not yet been done. PHYSICAL EXAM: Right foot: Her erythema has decreased significantly and the wound itself looks good. I was still able to express a little bit more of that whitish material and save some on a gauze and sent this to the lab to confirm whether this was tophaceous/crystalline material. ASSESSMENT: Healing right third toe infection. PLAN/RECOMMENDATIONS: I discussed with and Mrs. Roland that once we get her on oral antibiotics as well as set up the visiting home nurse services to do a daily packing change, we can probably get her home. I would recommend that she do the same sort of thing where before the nurse arrives, to do a soak with 3 L of saline and 5 cc of Betadine solution and this way the packing can be pulled out and then the visiting nurse service can repack the wound with 0.25-inch iodoform packing. A simple gauze and a wrap on top of the toe would be fine. If she is discharged tomorrow, I would like to see her in the office next week and make sure the wound is healing and see if we can discontinue the dressing changes. [id number]/[facility] #: [id number] SEBASTIAN
[2016-12-03] MEDS: Pramipexole TAB* 0.125 MG PO SCH (21:56)
[2016-12-03] MEDS: traMADol TAB* 50 MG PO PRN (22:00)
[2016-12-04] MEDS: Clindamycin 600 MG IVPREMIX(* 600 MG/50 ML SDV IV SCH ×3 (04:49→21:35)
[2016-12-04 05:22] LABS: Hematocrit 30 % (35-47); Hemoglobin 9.5 g/dl (12.0-16.0); Mean Corpuscular HGB Conc 32 g/dl (31-36); Mean Corpuscular Hemoglobin 31 pg (27-31); Mean Corpuscular Volume 94 fL (80-97); Mean Platelet Volume 10 um3 (7.4-10.4); Red Blood Count 3.12 10^6/ul (4.0-5.4); Red Cell Distribution Width 16 % (10.5-15); White Blood Count 11.9 10^3/ul (3.5-10.8)
[2016-12-04] MEDS: Levothyroxine TAB* 50 MCG TAB PO SCH (07:05)
[2016-12-04] MEDS: Insulin LISPRO* 1 UNITS UNIT SUBCUT SCH ×3 (07:39→17:43)
[2016-12-04] MEDS: Metoprolol Succinate XL TAB* 50 MG PO SCH ×2 (08:05→21:35)
[2016-12-04] MEDS: Potassium Chloride LIQUID* 20 MEQ PACKET PO SCH (08:05)
[2016-12-04] MEDS: Hydrochlorothiazide TAB* 25 MG PO SCH (08:06)
[2016-12-04] MEDS: Atorvastatin* 20 MG TAB PO SCH (08:06)
[2016-12-04] MEDS: Lisinopril TAB* 10 MG PO SCH (08:06)
[2016-12-04] MEDS: Aspirin EC Low Dose* 81 MG TAB.EC PO SCH (08:06)
--- NOTE | 2016-12-04 09:00 | PN ---
Subjective Date of Service: 12/04/16 Interval History: Eating breakfast, feels weaker than baseline but good overall. Pain in toe only if it gets bumped or touched. Would like to ambulate more. Nursing reports she needs assistance standing from seated position. Objective Active Medications: Aspirin (Aspirin Ec Low Dose*) 81 mg PO DAILY [facility] Last Admin: 12/04/16 08:06 Dose: 81 mg Atorvastatin Calcium (Lipitor*) 20 mg PO DAILY [facility] Last Admin: 12/04/16 08:06 Dose: 20 mg Dextrose (D50w Syringe 50 Ml*) 12.5 gm IV PUSH .FOR FS < 60 - SS PRN PRN Reason: FS < 60 Hydrochlorothiazide (Hydrodiuril Tab*) 12.5 mg PO DAILY [facility] Last Admin: 12/04/16 08:06 Dose: 12.5 mg Clindamycin HCl/Dextrose (Cleocin 600 Mg Ivpremix(*) Sdv) 600 mg in 50 mls @ 100 mls/hr IV Q8H [facility] Last Admin: 12/04/16 04:49 Dose: 100 mls/hr Insulin Human Lispro (Humalog*) 0 units SUBCUT AC [facility] PRN Reason: Protocol Last Admin: 12/04/16 07:39 Dose: Not Given Levothyroxine Sodium (Synthroid Tab*) 50 mcg PO 0600 [facility] Last Admin: 12/04/16 07:05 Dose: 50 mcg Lisinopril (Prinivil Tab*) 20 mg PO DAILY [facility] Last Admin: 12/04/16 08:06 Dose: 20 mg Metoprolol Succinate (Toprol Xl Tab*) 50 mg PO BID [facility] Last Admin: 12/04/16 08:05 Dose: 50 mg Potassium Chloride (Klor-Con Liquid*) 20 meq PO DAILY [facility] Last Admin: 12/04/16 08:05 Dose: 20 meq Pramipexole Dihydrochloride (Mirapex Tab*) 0.25 mg PO BEDTIME [facility] Last Admin: 12/03/16 21:56 Dose: 0.25 mg Tramadol HCl (Ultram*) 25 mg PO Q6H PRN PRN Reason: PAIN Last Admin: 12/03/16 22:00 Dose: 25 mg Vital Signs 12/03/16 12/03/16 12/03/16 12:13 15:02 19:51 Temperature 97.5 F 98.3 F 97.8 F Pulse Rate 84 76 87 Respiratory 18 16 20 Rate Blood Pressure 144/55 121/55 135/83 (mmHg) O2 Sat by Pulse 99 99 99 Oximetry 12/03/16 12/03/16 12/03/16 19:55 22:00 22:38 Temperature 98.0 F Pulse Rate 100 Respiratory 20 18 18 Rate Blood Pressure 138/53 (mmHg) O2 Sat by Pulse 99 99 Oximetry 12/04/16 12/04/16 00:00 07:16 Temperature 98.5 F Pulse Rate 88 Respiratory 18 16 Rate Blood Pressure 139/58 (mmHg) O2 Sat by Pulse 99 Oximetry Oxygen Devices in Use Now: None Appearance: Sitting in chair, NAD Eyes: No Scleral Icterus, PERRLA Ears/Nose/Mouth/Throat: Clear Oropharnyx, Mucous Membranes Moist Neck: NL Appearance and Movements; NL JVP, Trachea Midline Respiratory: Symmetrical Chest Expansion and Respiratory Effort, Clear to Auscultation Cardiovascular: - - IRIR Abdominal: NL Sounds; No Tenderness; No Distention, No Hepatosplenomegaly Lymphatic: No Cervical Adenopathy Extremities: No Edema Skin: - - right 3rd toe erythematous with reddness extending proximally over center of foot, NV in intact Neurological: Alert and Oriented x 3 Result Diagrams: 12/04/16 04:41 12/03/16 06:27 Microbiology and Other Data: Assess/Plan/Problems-Billing Ms Roland is an 89 yo F who has a h/o diabetes, CAD, HTN, HLD and paroxysmal afib who presented to the ER from her PCPs office for concerns of a diabetic R 3rd toe infection. - Patient Problems (1) Type 2 diabetes mellitus with right diabetic foot infection Comment: The patient has a R third toe severe infection. Please see yesterdays note from Dr. Fowler for picture of infection Appreciate Dr. Johnson's input - concern for infected tophus. c/w clindamycin alone although MSSA Continue packing and betadine soaks. ID consult today. (2) Anemia Comment: H/H has continued stable. No iron or B12 deficiency. Suspect anemia of chronic dz (3) Type II diabetes mellitus Comment: ISS lispro Check HbA1c (4) CAD (coronary artery disease) Comment: Continue ASA, lipitor and metoprolol. (5) Afib Comment: HR is controlled. Continue metoprolol XL. INR remains supratherapeutic. Continue to hold coumadin and follow up INR in the AM. (6) Supratherapeutic INR Comment: hold coumadin (7) HTN (hypertension) Comment: HCTZ resumed 5/8 c/w metoprolol and lisinopril holding lasix (8) DVT prophylaxis Comment: supratherapeutic INR
[2016-12-04 11:17] LABS: Add Path Review? YES
--- NOTE | 2016-12-04 11:41 | PN ---
Progress Note - Progress Note SOAP: Subjective: []Patient is seen OOB in chair, feels that her toe is improving nicely. Just had soak and dressing changed by nursing staff about 1/2 hr ago. Objective: [] Vital Signs Temp 98.5 F 12/04/16 07:16 Pulse 88 12/04/16 07:16 Resp 16 12/04/16 08:00 BP 139/58 12/04/16 07:16 Pulse Ox 99 12/04/16 07:16 Intake & Output 12/03/16 12/04/16 12/04/16 18:59 06:59 18:59 Intake Total 1140 174 120 Output Total 100 Balance 1140 74 120 Intake: IV Fluids 50 20 Clindamycin 50 NS 20 IVPB 54 Clindamycin 54 Oral 1090 100 120 Output: Urine 100 Laboratory Results - last 24 hr 12/03/16 12/03/16 12/04/16 12:12 17:05 04:41 WBC 11.9 H RBC 3.12 L Hgb 9.5 L Hct 30 L MCV 94 MCH 31 MCHC 32 RDW 16 H Plt Count 202 MPV 10 INR (Anticoag Therapy) POC Glucose (mg/dL) 230 H 155 H 12/04/16 12/04/16 04:41 07:35 WBC RBC Hgb Hct MCV MCH MCHC RDW Plt Count MPV INR (Anticoag Therapy) 3.78 H POC Glucose (mg/dL) 149 H Microbiology 12/03/16 15:00 Gram Stain - Final Wound - Other 12/01/16 12:00 Skin and Soft Tissue MRSA/MSSA (PCR - Final Toe Mrsa Negative S.aureus Positive Gram Stain - Final Wound Culture - Final Staphylococcus Aureus 11/30/16 18:30 Aerobic Blood Culture - Preliminary Blood Venous No Growth Day 3 Anaerobic Blood Culture - Preliminary No Growth Day 3 Blood Culture - Final 11/30/16 18:20 Aerobic Blood Culture - Preliminary Blood Venous No Growth Day 3 Anaerobic Blood Culture - Preliminary No Growth Day 3 Blood Culture - Final 11/30/16 17:15 Skin and Soft Tissue MRSA/MSSA (PCR - Final Toe Mrsa Negative S.aureus Positive Gram Stain - Final Wound Culture - Final Staphylococcus Aureus Dressings were not taken down, daily pictures from medicine notes show improvement Assessment: []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 Johnson, will try to see toe tomorrow am before 1st dressing change Await ID consult, on IV Clinda for MSSA Continue to follow
--- NOTE | 2016-12-04 22:20 | CONS ---
CONSULTATION REPORT: DATE OF CONSULTATION: 12/04/16 REQUESTING PHYSICIAN: Dr. Fowler. CONSULTING SERVICE: Infectious Disease. REASON FOR CONSULTATION: Right foot infection. IMPRESSION: 1. 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 2. Lactic acidosis present on admission, which has resolved. 3. Chronic kidney disease. 4. Atrial fibrillation. 5. Allergy to BACITRACIN. 6. Diabetes type 2. RECOMMENDATIONS: 1. Agree with clindamycin IV while she is here and we will transition her to oral Keflex for another 2 weeks while she is having continued wound therapy. I discussed with her that we have no evidence for osteomyelitis at this point and that the brief duration of her symptoms argues against osteomyelitis in this case; however, if she fails to resolve her symptoms with a short course of antibiotics, she may need a longer course of therapy aimed at treating osteomyelitis. 2. Baseline uric acid level and uric acid lowering agents to try to prevent the formation of future tophi. HISTORY OF PRESENT ILLNESS: An 89-year-old woman with gout, chronic kidney disease, atrial fibrillation, and diabetes, admitted with right foot pain and redness. She noticed 2 days before she came in some redness spreading up her right foot over the top of the foot with some pain and itching. She noticed the third toe to be swollen. She was seen in the ER on the . X-ray was done of the toe that showed degenerative changes without changes of chronic osteomyelitis. Wound swab was done that showed a Gram stain with 3+ gram- positive cocci in clusters. The culture grew methicillin-sensitive Staphylococcus aureus. Her blood cultures were negative. She was started on clindamycin. She has had improvement in the redness on the top of that foot. She was seen by Dr. Johnson who debrided the third toe where there was a small ulcer. That sample showed monosodium urate crystals and was also positive for Staphylococcus aureus. The swelling and redness in her toe has improved as well. She continues to have packing of the wound and 3 times a day dressing changes. She has no pain in her toe. She has not had infection like this in the past. She has not had gout treatment in the past. PAST MEDICAL HISTORY: 1. Atrial fibrillation. 2. Status post mitral valve repair. 3. Status post aortic valve repair. 4. History of a sternal wound infection due to Staphylococcus aureus. 5. Restless leg syndrome. 6. Hypertension. 7. Hyperlipidemia. 8. Diabetes type 2. 9. Status post hysterectomy. 10. Gout. ALLERGIES: BACITRACIN. MEDICATIONS: 1. Aspirin. 2. Lipitor. 3. Clindamycin 600 mg IV every 8 hours. 4. Hydrochlorothiazide. 5. Levothyroxine. 6. Lisinopril. 7. Metoprolol. 8. Tramadol. SOCIAL HISTORY: She lives in [place] with her . No sick contacts or travel. FAMILY HISTORY: No current infections. REVIEW OF SYSTEMS: Full review of systems was negative except as noted above. PHYSICAL EXAM: Vital Signs: Temperature is 36.5, heart rate 87, respiratory rate 16, blood pressure 130/50, O2 sat 99% on room air. In general, she is awake and not in distress. Neurologic: She is oriented x3. Follows all commands. Moves all extremities. She has decreased sensation to light touch in both feet. Neck is supple without nuchal rigidity. Lymph Nodes: There is no cervical, supraclavicular, inguinal, axillary, or epitrochlear lymphadenopathy. HEENT: There is no conjunctival hemorrhage. Oropharynx without lesions. Heart is irregular and tachycardic without murmurs. Lungs are clear to auscultation bilaterally. Abdomen: Soft, nontender, nondistended. There is no hepatosplenomegaly. Skin: There is no rash or splinter hemorrhages. She has small tophi throughout her bilateral index fingers distally in the skin. Musculoskeletal: There is no spine tenderness to palpation. 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 Her right third toe is diffusely edematous and erythematous with a 3-mm ulceration with packing, some serous drainage. Erythema extending up to mid foot, which is fading. LABORATORY DATA: White blood cell count 11.9, hemoglobin 9, platelets 202, creatinine is 1.0. CRP is 58. Please see impressions and recommendations as outlined above. Thanks for asking me to see Ms. Roland in consultation. [id number]/[facility] #: [id number] SEBASTIAN
[2016-12-04] MEDS: Pramipexole TAB* 0.125 MG PO SCH (22:27)
[2016-12-04] MEDS: traMADol TAB* 50 MG PO PRN (22:28)
[2016-12-05] MEDS: Clindamycin 600 MG IVPREMIX(* 600 MG/50 ML SDV IV SCH ×3 (05:41→21:27)
[2016-12-05] MEDS: Levothyroxine TAB* 50 MCG TAB PO SCH (05:41)
[2016-12-05 06:11] LABS: Hematocrit 32 % (35-47); Hemoglobin 10.5 g/dl (12.0-16.0); Mean Corpuscular HGB Conc 32 g/dl (31-36); Mean Corpuscular Hemoglobin 31 pg (27-31); Mean Corpuscular Volume 95 fL (80-97); Mean Platelet Volume 10 um3 (7.4-10.4); Red Blood Count 3.41 10^6/ul (4.0-5.4); Red Cell Distribution Width 16 % (10.5-15); White Blood Count 15.8 10^3/ul (3.5-10.8)
[2016-12-05 06:28] LABS: BUN/Creatinine Ratio 36.7 (8-20); Calcium 9.4 mg/dL (8.6-10.3); EGFR African American 75.8 (>60); Potassium 4.6 mmol/L (3.5-5.0)
--- NOTE | 2016-12-05 09:07 | PN ---
Progress Note - Progress Note SOAP: Subjective: []Patient seen at bedside, sitting at edge of bed eating breakfast. No complaints of significant toe or foot pain. Objective: [] Vital Signs Temp 100.0 F 12/05/16 04:16 Pulse 82 12/05/16 04:16 Resp 16 12/05/16 04:16 BP 145/62 12/05/16 04:16 Pulse Ox 98 12/05/16 04:16 Intake & Output 12/04/16 12/05/16 12/05/16 18:59 06:59 18:59 Intake Total 1270 395 Output Total 0 Balance 1270 395 Intake: IV Fluids 70 45 Clindamycin 50 NS 20 45 IVPB 110 Clindamycin 110 Oral 1200 240 Output: Urine 0 Other: Date of Last Bowel 0 Movement # Bowel Movements 0 # Voids 1 Laboratory Results - last 24 hr 12/04/16 12/04/16 12/04/16 04:41 11:49 15:00 WBC RBC Hgb Hct MCV MCH MCHC RDW Plt Count MPV Neut % (Auto) Lymph % (Auto) Brown % (Auto) Eos % (Auto) Baso % (Auto) Absolute Neuts (auto) Absolute Lymphs (auto) Absolute Monos (auto) Absolute Eos (auto) Absolute Basos (auto) Absolute Nucleated RBC Nucleated RBC % INR (Anticoag Therapy) Sodium Potassium Chloride Carbon Dioxide Anion Gap BUN Creatinine Est GFR ( Amer) Est GFR (Non-Af Amer) BUN/Creatinine Ratio Glucose POC Glucose (mg/dL) 218 H Hemoglobin A1c 6.9 H Calcium Fluid Crystals Monosodium urate Fluid Crystal Interp 12/04/16 12/05/16 12/05/16 17:19 05:50 05:50 WBC 15.8 H RBC 3.41 L Hgb 10.5 L Hct 32 L MCV 95 MCH 31 MCHC 32 RDW 16 H Plt Count 226 MPV 10 Neut % (Auto) 78.4 Lymph % (Auto) 10.5 L Brown % (Auto) 9.0 Eos % (Auto) 1.1 Baso % (Auto) 1.0 Absolute Neuts (auto) 12.4 H Absolute Lymphs (auto) 1.7 Absolute Monos (auto) 1.4 H Absolute Eos (auto) 0.2 Absolute Basos (auto) 0.2 Absolute Nucleated RBC 0.01 Nucleated RBC % 0 INR (Anticoag Therapy) 2.18 H Sodium Potassium Chloride Carbon Dioxide Anion Gap BUN Creatinine Est GFR ( Amer) Est GFR (Non-Af Amer) BUN/Creatinine Ratio Glucose POC Glucose (mg/dL) 174 H Hemoglobin A1c Calcium Fluid Crystals Fluid Crystal Interp 12/05/16 12/05/16 05:50 07:28 WBC RBC Hgb Hct MCV MCH MCHC RDW Plt Count MPV Neut % (Auto) Lymph % (Auto) Brown % (Auto) Eos % (Auto) Baso % (Auto) Absolute Neuts (auto) Absolute Lymphs (auto) Absolute Monos (auto) Absolute Eos (auto) Absolute Basos (auto) Absolute Nucleated RBC Nucleated RBC % INR (Anticoag Therapy) Sodium 133 Potassium 4.6 Chloride 101 Carbon Dioxide 22 Anion Gap 10 BUN 33 H Creatinine 0.90 Est GFR ( Amer) 75.8 Est GFR (Non-Af Amer) 59.0 BUN/Creatinine Ratio 36.7 H Glucose 206 H POC Glucose (mg/dL) 245 H Hemoglobin A1c Calcium 9.4 Fluid Crystals Fluid Crystal Interp Outer dressing removed, right foot erythema appears improved, packing intact 3rd toe with some erythema, no worse. Dorsum of foot and toe non tender to touch. 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 Schuster recommends continued IV Clinda in house with transition to oral Keflex for 2 weeks after discharge. Continue TID soaks and dressing changes as recommended by Dr. Johnson
--- NOTE | 2016-12-05 09:48 | PN ---
Progress Note - Progress Note SOAP: Subjective: DOS: 12/05/16 CC: foot infection HPI: 89 yo woman with gout and right 3rd toe swelling and redness extending to forefoot, had I&D of area on 3rd toe with purulent drainage, fluid analysis showed MSU crystals and MSSA. Foot redness and swelling nearly gone, 3rd toe improving. No fever, rash, or diarrhea. Objective: [] Vital Signs Temp 37.8 C 12/05/16 04:16 Pulse 82 12/05/16 04:16 Resp 16 12/05/16 04:16 BP 145/62 12/05/16 04:16 Pulse Ox 98 12/05/16 04:16 Intake & Output 12/04/16 12/05/16 12/05/16 18:59 06:59 18:59 Intake Total 1270 395 Output Total 0 Balance 1270 395 Intake: IV Fluids 70 45 Clindamycin 50 NS 20 45 IVPB 110 Clindamycin 110 Oral 1200 240 Output: Urine 0 Other: Date of Last Bowel 0 Movement # Bowel Movements 0 # Voids 1 Gen:Awake, no distress HEENT:PERRL, MMM Neck:supple Heart:RRR no murmur Lungs:CTA BL Abd:+BS NTND soft Skin: No rash MSK: R 3rd toe diffuse edema and erythema, small ulcer with packing material, scant forefoot erythema Assessment: 1. right foot cellulitis and abscess due to MSSA, underlying gout flair/tophus as nidus of infection 2. T2DM Plan: 1. change abx to keflex 500 mg po tid for 14 days, fu with me 1-2 weeks 2. gout treatment per Dr Morrison 25 minutes floor time >50% in counseling discussing next steps in antibiotic treatment and monitoring of progress, signs and symptoms to watch for that would suggest worsening of infection
[2016-12-05] MEDS: Insulin LISPRO* 1 UNITS UNIT SUBCUT SCH ×3 (10:14→18:25)
[2016-12-05] MEDS: Hydrochlorothiazide TAB* 25 MG PO SCH (10:15)
[2016-12-05] MEDS: Aspirin EC Low Dose* 81 MG TAB.EC PO SCH (10:16)
[2016-12-05] MEDS: Metoprolol Succinate XL TAB* 50 MG PO SCH ×2 (10:16→21:27)
[2016-12-05] MEDS: Potassium Chloride LIQUID* 20 MEQ PACKET PO SCH (10:16)
[2016-12-05] MEDS: Atorvastatin* 20 MG TAB PO SCH (10:16)
[2016-12-05] MEDS: Lisinopril TAB* 10 MG PO SCH (10:16)
[2016-12-05] MEDS ORDERED: Warfarin TAB(*) 2 MG PO ONE (17:00)
--- NOTE | 2016-12-05 17:00 | PN ---
Subjective Date of Service: 12/05/16 Interval History: Feels well. Pain in foot resolving. Appetite good. Anxious to go home. Objective Active Medications: Aspirin (Aspirin Ec Low Dose*) 81 mg PO DAILY [facility] Last Admin: 12/05/16 10:16 Dose: 81 mg Atorvastatin Calcium (Lipitor*) 20 mg PO DAILY [facility] Last Admin: 12/05/16 10:16 Dose: 20 mg Colchicine (Colcrys*) 0.6 mg PO BID [facility] Dextrose (D50w Syringe 50 Ml*) 12.5 gm IV PUSH .FOR FS < 60 - SS PRN PRN Reason: FS < 60 Hydrochlorothiazide (Hydrodiuril Tab*) 12.5 mg PO DAILY [facility] Last Admin: 12/05/16 10:15 Dose: 12.5 mg Clindamycin HCl/Dextrose (Cleocin 600 Mg Ivpremix(*) Sdv) 600 mg in 50 mls @ 100 mls/hr IV Q8H [facility] Last Admin: 12/05/16 13:37 Dose: 100 mls/hr Insulin Human Lispro (Humalog*) 0 units SUBCUT AC [facility] PRN Reason: Protocol Last Admin: 12/05/16 12:18 Dose: Not Given Levothyroxine Sodium (Synthroid Tab*) 50 mcg PO 0600 [facility] Last Admin: 12/05/16 05:41 Dose: 50 mcg Lisinopril (Prinivil Tab*) 20 mg PO DAILY [facility] Last Admin: 12/05/16 10:16 Dose: 20 mg Metoprolol Succinate (Toprol Xl Tab*) 50 mg PO BID [facility] Last Admin: 12/05/16 10:16 Dose: 50 mg Potassium Chloride (Klor-Con Liquid*) 20 meq PO DAILY [facility] Last Admin: 12/05/16 10:16 Dose: 20 meq Pramipexole Dihydrochloride (Mirapex Tab*) 0.25 mg PO BEDTIME [facility] Last Admin: 12/04/16 22:27 Dose: 0.25 mg Tramadol HCl (Ultram*) 25 mg PO Q6H PRN PRN Reason: PAIN Last Admin: 12/04/16 22:28 Dose: 25 mg Vital Signs 12/04/16 12/04/16 12/04/16 20:00 20:02 20:20 Temperature 98.0 F Pulse Rate 150 96 Respiratory 16 16 Rate Blood Pressure 140/73 (mmHg) O2 Sat by Pulse 98 98 Oximetry 12/04/16 12/04/16 12/05/16 22:28 23:15 00:28 Temperature 98.2 F Pulse Rate 98 Respiratory 18 16 16 Rate Blood Pressure 125/65 (mmHg) O2 Sat by Pulse 100 Oximetry 12/05/16 12/05/16 12/05/16 04:16 07:10 08:00 Temperature 100.0 F 98.2 F Pulse Rate 82 89 Respiratory 16 18 16 Rate Blood Pressure 145/62 132/51 (mmHg) O2 Sat by Pulse 98 97 97 Oximetry 12/05/16 15:34 Temperature 97.5 F Pulse Rate 66 Respiratory 16 Rate Blood Pressure 128/50 (mmHg) O2 Sat by Pulse 99 Oximetry Oxygen Devices in Use Now: None Appearance: younger than stated age, NAD Eyes: No Scleral Icterus, PERRLA Ears/Nose/Mouth/Throat: Clear Oropharnyx, Mucous Membranes Moist Neck: NL Appearance and Movements; NL JVP, Trachea Midline Respiratory: Symmetrical Chest Expansion and Respiratory Effort, Clear to Auscultation Cardiovascular: RRR Abdominal: NL Sounds; No Tenderness; No Distention, No Hepatosplenomegaly Lymphatic: No Cervical Adenopathy Skin: - - right 3rd toe erythematous but improved with erythema extending over dorsum of foot also improved Neurological: Alert and Oriented x 3 Result Diagrams: 12/05/16 05:50 12/05/16 05:50 Microbiology and Other Data: Assess/Plan/Problems-Billing Ms Roland is an 89 yo F who has a h/o diabetes, CAD, HTN, HLD and paroxysmal afib who presented to the ER from her PCPs office for concerns of a diabetic R 3rd toe infection. - Patient Problems (1) Type 2 diabetes mellitus with right diabetic foot infection Comment: The patient has a R third toe severe infection. Please see noted from Dr. Fowler for picture of infection Appreciate Dr. Johnson's input - concern for infected tophus - aspirate with monosodium urate crystals c/w clindamycin and transition to keflex x 14 days on discharge Continue packing and betadine soaks (daily as outpatient for about 2 weeks) Will remain hospitalized and be evaluated by VNS tomorrow with tomorrow in hospital (2) Anemia Comment: H/H has continued stable. No iron or B12 deficiency. Suspect anemia of chronic dz (3) Type II diabetes mellitus Comment: ISS lispro hba1c 6.9% (4) CAD (coronary artery disease) Comment: Continue ASA, lipitor and metoprolol. (5) Afib Comment: HR is controlled. Continue metoprolol XL. restart coumadin 2mg 12/05 (6) Supratherapeutic INR Comment: resolved (7) HTN (hypertension) Comment: HCTZ resumed 12/03 c/w metoprolol and lisinopril holding lasix (8) Gout Comment: acute gout attack start colchicine (9) DVT prophylaxis Comment: coumadin
[2016-12-05] MEDS: Colchicine* 0.6 MG TAB PO SCH (21:27)
[2016-12-05] MEDS: traMADol TAB* 50 MG PO PRN (22:42)
[2016-12-05] MEDS: Pramipexole TAB* 0.125 MG PO SCH (22:42)
[2016-12-06] MEDS: Levothyroxine TAB* 50 MCG TAB PO SCH (05:23)
[2016-12-06] MEDS: Clindamycin 600 MG IVPREMIX(* 600 MG/50 ML SDV IV SCH (05:23)
[2016-12-06 07:31] VITALS: BP 127/74
[2016-12-06] MEDS: Potassium Chloride LIQUID* 20 MEQ PACKET PO SCH (09:35)
[2016-12-06] MEDS: Colchicine* 0.6 MG TAB PO SCH (09:37)
[2016-12-06] MEDS: Aspirin EC Low Dose* 81 MG TAB.EC PO SCH (09:37)
[2016-12-06] MEDS: Metoprolol Succinate XL TAB* 50 MG PO SCH (09:37)
[2016-12-06] MEDS: Lisinopril TAB* 10 MG PO SCH (09:37)
[2016-12-06] MEDS: Atorvastatin* 20 MG TAB PO SCH (09:38)
[2016-12-06] MEDS: Hydrochlorothiazide TAB* 25 MG PO SCH (09:38)
[2016-12-06] MEDS: Insulin LISPRO* 1 UNITS UNIT SUBCUT SCH (10:11)
--- NOTE | 2016-12-06 10:31 | PN ---
Progress Note - Progress Note SOAP: Subjective: []Patient seen at edge of bed. Doing well, denies significant toe or foot pain. Waiting for her to arrive and learn how to do dressing changes. She is anxious to be discharged home today. Objective: [] Vital Signs Temp 97.7 F 12/06/16 07:07 Pulse 101 12/06/16 07:07 Resp 18 12/06/16 10:12 BP 127/74 12/06/16 07:07 Pulse Ox 99 12/06/16 10:12 Intake & Output 12/05/16 12/06/16 12/06/16 18:59 06:59 18:59 Intake Total 720 155 230 Balance 720 155 230 Intake: IV Fluids 45 NS 45 IVPB 110 Clindamycin 110 Oral 720 0 230 Other: # Bowel Movements 0 # Voids 2 Laboratory Results - last 24 hr 12/05/16 12/05/16 12/06/16 12:10 16:47 08:16 POC Glucose (mg/dL) 144 H 150 H 148 H Right foot and toe swelling and erythema continue to improve Assessment: []infected gouty tophus right 3 rd toe, improved Plan: []Discharge home per Dr. Morrison today if can manage dressing changes Keflex 500 mg TID for [address] Schuster's recommendations Follow up with Dr. Johnson in 7-10 days in office
--- NOTE | 2016-12-07 02:14 | DS ---
DISCHARGE SUMMARY: DATE OF ADMISSION: 11/30/16 DATE OF DISCHARGE: 12/06/16 PRIMARY CARE PROVIDER: Khushbu Hernandez MD. I contacted Mary's office, we will call patient with the followup appointment. PRIMARY DIAGNOSES: 1. Right third toe cellulitis with associated abscess. 2. Acute gout flare. SECONDARY DIAGNOSES: 1. Type 2 diabetes. 2. Anemia. 3. Coronary artery disease. 4. Atrial fibrillation. 5. Supratherapeutic INR during hospital stay. 6. Hypertension. MEDICATIONS ON DISCHARGE: 1. Synthroid 50 mcg daily. 2. Lisinopril 20 mg daily. 3. Aspirin 81 mg daily. 4. Mirapex 0.25 mg at bedtime. 5. Metoprolol XL 50 mg twice daily. 6. Potassium liquid 20 mEq daily. 7. Coumadin 1 mg Saturday and Saturday. 8. Coumadin 2 mg Saturday, Saturday, , Saturday and Saturday. 9. Hydrochlorothiazide 12.5 mg daily. 10. Atorvastatin 20 mg daily. 11. Tramadol 25 mg to 50 mg 3 times a day as needed for pain. 12. Colchicine 0.6 mg twice daily for next month. 13. Keflex 500 mg 3 times a day 2 additional weeks. PERTINENT MICROBIOLOGY: From toe staph aureus positive, negative for MRSA. PERTINENT LABORATORY DATA: Crystals from toe, monosodium urate, hemoglobin A1c 6.9%. HISTORY OF PRESENT ILLNESS AND HOSPITAL COURSE: Chhaya is an 89-year-old female with past medical history as outlined in the history of present illness on the day of admission presented to the hospital with pain in her right third toe noted to be infected with underlying abscess. She was treated in conjunction with Dr. Johnson, performed incision and drainage of the toe. Cultures as indicated above, which grew MSSA as well as yielded monosodium urate crystals consistent with acute gouty arthritis. The patient was treated with cefepime, transitioned to clindamycin, discharged on Keflex. She was seen in conjunction with Dr. Schuster from Infectious Diseases. Additionally, she was started on colchicine prior to discharge, continued for her acute gouty flare of the same toe. She did remarkably well during the course of the hospital stay. The wound was packed and her foot was soaked in sterile water 3 times daily. She was evaluated by VNS with her on the day of discharge. The was able to perform the foot soaking and dressing changes. VNS will follow after discharge and the will perform the daily wound care. Of note, patient was discharged from the hospital prior to this author placing a discharge order and thus, wound care instructions were now placed in discharge summary. They are as follows: RN followed up with the patient and VNS. VNS indicated that they observed the performing the procedure and is very comfortable with the wound care. Additionally, he received information from VNS. We will continue to follow with the patient and her at home. Medication reconciliation is correct in the discharge summary. I contacted her primary care provider's office who will contact the patient with a followup appointment for 1 to 2 weeks. At followup, please: 1. Follow continued resolution of toe erythema and pain. Extend antibiotics as needed. 2. Follow up for resolution of gouty arthritis, transition colchicine to allopurinol at the end of flare. 3. Patient was discharged off Lasix. Consider restarting if needed. 4. Patient was discharged on hydrochlorothiazide, which could potentially aid gouty flares. attention paid to this medication and changed if thought necessary and/or possible. Reasons to return to the hospital including but not limited to recurrent or worsening symptoms including worsening pain, extending erythema, fevers, chills , night sweats discussed with patient prior to discharge. Other discharge instructions were not given to the patient as she was discharged prior to this author's final approval. TIME SPENT: Greater than 60 minutes was spent on discharge of this patient, greater than half was spent [id number] with the patient. Care was discussed with her at length prior to the VNS and her discharge. CC: Khushbu Hernandez MD; David Schuster MD * [id number]/[facility] #: [id number] [place]
== END 2016-12-06 12:15 | disposition home or self-care (01) | DRG 982 ==
LOC: ED 16:41 → MED 19:35
PROVIDERS: ADMIT Internal Medicine; ATTEND Internal Medicine
PROC: 3E0234Z Introduction of Serum, Toxoid and Vaccine into Muscle, Percutaneous Approach (ICD-10-PCS; principal; 2016-12-01)
PROC: 0JDQ0ZZ Extraction of Right Foot Subcutaneous Tissue and Fascia, Open Approach (ICD-10-PCS; 2016-12-01)
DX: E11.621 Type 2 diabetes mellitus with foot ulcer (principal); L03.115 Cellulitis of right lower limb; L97.519 Non-pressure chronic ulcer of other part of right foot with unspecified severity; E87.2 Acidosis; I48.0 Paroxysmal atrial fibrillation; E11.22 Type 2 diabetes mellitus with diabetic chronic kidney disease; E11.40 Type 2 diabetes mellitus with diabetic neuropathy, unspecified; L02.611 Cutaneous abscess of right foot; G25.81 Restless legs syndrome; I12.9 Hypertensive chronic kidney disease with stage 1 through stage 4 chronic kidney disease, or unspecified chronic kidney disease; Z91.14 Patient's other noncompliance with medication regimen; Z95.2 Presence of prosthetic heart valve; I48.91 Unspecified atrial fibrillation; Z88.1 Allergy status to other antibiotic agents; I25.10 Atherosclerotic heart disease of native coronary artery without angina pectoris; E78.00 Pure hypercholesterolemia, unspecified; Z95.1 Presence of aortocoronary bypass graft; E78.5 Hyperlipidemia, unspecified; Z82.49 Family history of ischemic heart disease and other diseases of the circulatory system; N18.3 Chronic kidney disease, stage 3 (moderate); E03.9 Hypothyroidism, unspecified; D64.9 Anemia, unspecified; R79.1 Abnormal coagulation profile; T45.515A Adverse effect of anticoagulants, initial encounter; B95.61 Methicillin susceptible Staphylococcus aureus infection as the cause of diseases classified elsewhere; M10.9 Gout, unspecified; Z79.82 Long term (current) use of aspirin; Z23 Encounter for immunization
CPT/HCPCS: 36415; 80048; 80053; 82607; 82728; 83036; 83540; 83550; 83605; 84484; 85025; 85027; 85610; 85652; 85730; 86140; 87040; 87070; 87077; 87186; 87205; 87640; 87641; 89060; 90732; 93005; A9270-GY; J0692; J1956